=== PATIENT | male | born 1990 | race Caucasian/White ===

== ENCOUNTER → 2018-02-18 | Outpatient (CLI) | payer OTHER ==
--- NOTE | 2018-02-18 18:10 | CONS ---
CONSULTATION REASON FOR CONSULTATION: This is a consultation note for sleep apnea. HISTORY OF PRESENT ILLNESS: This is a 27-year-old boy who comes in for evaluation management of his obstructive sleep apnea. The patient was diagnosed having ORIN approximately 2 years ago through a sleep study that was done at [facility] in [place]. He was given a CPAP machine which was set at a pressure of 7 cm of water. The patient currently was asked to come into the sleep center by his family members and his mother to make sure the treatment has been effective over the past 2 years. I checked this patient's CPAP machine. The patient has a Rezmed S9 series which is set at a pressure of 7 cm of water. The patient is using a Mirage Quattro full face mask. His average CPAP is around 8.1 hours per night and his CPAP use for more than 4 hours is 29/30. The patient reports no snoring while on CPAP therapy. He denies having any choking or gasping for air. He is waking up refreshed and alert during the day. He is going to bed around 12:00 am and waking up at 7:00 am. He has gained some weight in the order of 27 pounds over the past 5 years and 10 pounds over the past 1 year. At times he feels that the pressure is low and he is in need of a higher pressure through his machine. His current [place] score is 11. He is working at [employer] and he is able to function and perform activities of the day life without any major problems or sleepiness or tiredness or fatigue. He has history of seizure disorder which is well treated with Depakote and he also has been on Lexapro for chronic depression. No substance abuse. He has positive family history for obstructive sleep apnea. PAST MEDICAL HISTORY: 1. ORIN, exact diagnostic circumstances are not available. Baseline PSG is not available. The patient is currently on a CPAP pressure of 7 cm of water. 2. Seizure disorder. 3. Chronic anxiety. PAST SURGICAL HISTORY: Includes surgery on the right wrist. DRUG ALLERGIES: Not known. OUTPATIENT MEDICATION LIST: Includes Depakote, Lexapro and zonisamide. SOCIAL HISTORY: The patient is a nonsmoker. No history of alcohol. No history of IV drugs. FAMILY HISTORY: Positive for obstructive sleep apnea in a sister. REVIEW OF SYSTEMS: 12-point review of system was done and positive findings are mentioned above in the history of present illness. The patient is a healthy child. His seizures have been well suppressed. No insomnia. No choking or gasping sensation. No restlessness in the lower extremities. No sleepwalking or sleep talking. No grinding of the teeth. No palpitation. No heartburn at nighttime. He has anxiety and component of depression for which he is on Lexapro. No sleep paralysis. No hallucinations. No cataplexy. PHYSICAL EXAMINATION: BP is 119/69, pulse 88, respirations 16, temperature 98.1, saturation 98% on room air. Weight 236. Height is 5 feet 8 inches and neck size 15.5 inches. General appearance: Calm comfortable in no acute distress. Head is atraumatic, normocephalic. NECK: Supple. Mallampati Class 1. There is no goiter or neck masses. LUNGS: Clear to auscultation. HEART: Sounds regular rate and rhythm. Normal S1, S2. No S3, S4. No murmurs. ABDOMEN: Soft, nontender. No organomegaly. EXTREMITIES: No edema. No cyanosis or clubbing. SKIN: Negative for wounds or ulcerations. IMPRESSION: 1. Obstructive sleep apnea. Currently on a CPAP pressure of 7 cm of water. 2. Hypersomnia, improved current [place] score is down to 11. 3. Obesity with interval weight gain. Current BMI 35.8. 4. Seizure disorder. Currently well treated. 5. Anxiety/depression. PLAN: 1. Encourage weight loss. 2. Put this patient on automatic mode with a minimum pressure of 5 maximum pressure of 15. This change was done as the patient was stating that he would be in need of a higher pressures and the pressure of 7 was probably suboptimal and at times, was feeling air hungry. He also reports some feeling of suffocating at nighttime with a pressure of 7 cm of water and based on that, the changes were made. 3. Stop the Mirage Quattro and will give the patient an AirFit F20 full face mask. 4. Patient will see me back in 6 weeks time to report his clinical response to the above-mentioned changes. Would consider repeating a CPAP titration if he remains to be quite uncomfortable and symptomatic while on treatment. MMODL / IJN: [id number] /
== END | disposition home or self-care (01) ==
LOC: SLEEP 10:21
PROVIDERS: ATTEND Internal Medicine Critical Care Medicine
DX: G47.33 Obstructive sleep apnea (adult) (pediatric) (principal); G40.909 Epilepsy, unspecified, not intractable, without status epilepticus; F41.8 Other specified anxiety disorders; F32.9 Major depressive disorder, single episode, unspecified; E66.9 Obesity, unspecified; Z98.890 Other specified postprocedural states; Z79.899 Other long term (current) drug therapy; Z68.35 Body mass index [BMI] 35.0-35.9, adult; Z99.89 Dependence on other enabling machines and devices
CPT/HCPCS: 99211

== ENCOUNTER → 2018-04-08 | Outpatient (CLI) | payer OTHER ==
--- NOTE | 2018-04-08 18:50 | PN ---
PROGRESS NOTE Kelby is 27, coming in for a compliancy check regarding her obstructive sleep apnea. The patient was seen 3 months ago here at the Sleep Center. The patient was having some difficulty tolerating the CPAP machine because of low pressure sensation. I checked the CPAP machine and I changed the setting to a minimum pressure of 7, maximum pressure of 15 allowing some high pressure at start which helps this patient get rid of the air hunger. His REM time was also terminated. He was switched to an AirFit F20 full face mask which he likes it very much. He is utilizing his CPAP every night. His CPAP use around 100% for more than 4 hours and his P90 pressure is at 7.9. He is benefitting from the treatment. He has no major hypersomnia or sleepiness during the day. No seizure activity has been noted. His body weight remains stable. REVIEW OF SYSTEMS: 12-point review of system was done. Positive findings are mentioned above history of present illness. [place] score is 11. PHYSICAL EXAMINATION: BP is 126/59, pulse 78, respirations 16, temperature 98.0, saturation 98% on room air. Weight is 231. Height is 5 feet 8 inches and BMI 35.1. GENERAL APPEARANCE: Calm, comfortable. Head is atraumatic, normocephalic. NECK: Supple. There is no JVD. No goiter or neck masses. Mallampati class IV. LUNGS: Clear to auscultation. HEART: Sounds regular rhythm. Normal S1, S2. No S3. No murmurs. ABDOMEN: Soft, nontender. No organomegaly. EXTREMITIES: No edema. No cyanosis or clubbing. IMPRESSION: 1. Obstructive sleep apnea. Currently on APAP with minimum pressure of 7 and maximum pressure of 15. Treatment is successful. 2. Hypersomnia, improved. 3. Obesity, BMI of 35. 4. Seizure disorder. 5. Chronic anxiety/depression. PLAN: 1. Continue same CPAP setting. 2. Renew the AirFit F20 full face mask. 3. Encourage weight loss. 4. See me back in a year's time or earlier if needed. MMODL / IJN: [id number] /
== END | disposition home or self-care (01) ==
LOC: SLEEP 13:12
PROVIDERS: ATTEND Internal Medicine Critical Care Medicine
DX: G47.33 Obstructive sleep apnea (adult) (pediatric) (principal); E66.9 Obesity, unspecified; G40.909 Epilepsy, unspecified, not intractable, without status epilepticus; F41.9 Anxiety disorder, unspecified; F32.9 Major depressive disorder, single episode, unspecified; Z68.35 Body mass index [BMI] 35.0-35.9, adult

== ENCOUNTER → 2019-01-13 | Outpatient (CLI) | payer OTHER ==
--- NOTE | 2019-01-13 17:55 | PN ---
PROGRESS NOTE This is a 28-year-old male patient coming in for a CPAP compliancy followup. The patient was diagnosed having obstructive sleep apnea through an outside sleep center. The patient is currently on APAP. I checked his CPAP machine approximately a year ago and the patient is coming in for an annual check. The patient is still using his ResMed S9 series, which is an APAP unit. It is set at a minimum pressure of 7, maximum pressure of 17. He is using also an AirFit F20 medium-sized mask. Since his last visit, the patient has gained around 30 pounds. He used to weight 231 and is currently up to 244. Based on the compliance data, the patient has been averaging around 8 hours of APAP use per night and his AHI is down to 1.7. He is doing well. No snoring while on the treatment. He is waking up refreshed and alert during the day. No major hypersomnia or sleepiness. He is well treated. He is going to see a carbon sequestration plant engineer in regard to his weight gain. Otherwise, no new-onset comorbidities since his last visitation. REVIEW OF SYSTEM: Fourteen-point review of systems was done. Positive findings are all mentioned above in the history of present illness. PHYSICAL EXAMINATION: BP is 147/84, pulse 90, respirations 16, temperature 98.2, saturation 97% on room air. Height is 5 feet 8 inches, weight 244, and BMI 37. GENERAL APPEARANCE: Obese. Calm, comfortable. HEAD: Atraumatic, normocephalic. NECK: Supple. Mallampati class IV. There is no goiter or neck masses. LUNGS: Clear to auscultation. HEART: Heart sounds are regular rate and rhythm. Normal S1, S2. No S3, S4. No murmurs. ABDOMEN: Soft, nontender. No organomegaly. EXTREMITIES: No edema. No cyanosis or clubbing. NEUROLOGIC: Alert and oriented x3. No focal neurological deficits. PSYCHIATRIC: Negative for anxiety or depression. IMPRESSION: 1. Symptomatic obstructive sleep apnea. Currently on APAP. The patient has a ResMed S9 series with an APAP, minimum pressure of 7, maximum pressure of 17. 2. Obesity; body mass index of 37. 3. Hypersomnia, recovered. 4. History of depression. 5. History of seizures. 6. Obesity with interval weight gain. PLAN: 1. Weight loss. 2. Encourage seeing a dietitian regarding weight loss. 3. Continue APAP therapy at the same setting. Treatment is successful. Compliancy data is adequate. Keep the patient on an AirFit F20 medium-sized full-face mask and see me back in the office in a year's time in followup, earlier if needed. MMGLORY / IJN: [id number] /
== END ==
LOC: SLEEP 14:36
PROVIDERS: ATTEND Internal Medicine Critical Care Medicine
DX: G47.33 Obstructive sleep apnea (adult) (pediatric) (principal); E66.9 Obesity, unspecified; Z68.37 Body mass index [BMI] 37.0-37.9, adult; Z99.89 Dependence on other enabling machines and devices; Z86.69 Personal history of other diseases of the nervous system and sense organs; Z86.59 Personal history of other mental and behavioral disorders

== ENCOUNTER 2019-01-16 10:14 | Emergency (ER) | payer OTHER ==
[2019-01-16] MEDS ORDERED: SODIUM CHLORIDE 0.9% 1,000 ML IV STA ×2 (10:43)
[2019-01-16] MEDS ORDERED: ONDANSETRON 4 MG/2 ML VIAL IVP STA (10:43)
[2019-01-16] MEDS ORDERED: LORazepam 2 MG/ML INJ IV STA (10:43)
--- NOTE | 2019-01-16 10:46 | ED ---
Seizure HPI - General Chief Complaint: Seizure Stated Complaint: Seizure Time Seen by Provider: 01/16/19 10:23 Source: patient, family, RN notes reviewed, old records reviewed Mode of arrival: wheelchair Limitations: no limitations - History of Present Illness Initial Comments: Patient is a 28-year-old male history of seizure disorder presents emergency Department after 15 minute grand mal seizure. Patient reports emergency department with his mother. Currently feels nauseous and complains of a headache. He denies any history of injury related to the seizure. The seizure lasted approximately 15 minutes and Patient was in his bed. Patient manages his seizures Depakote. He saw his neurologist approximately 3 weeks ago. He follows with neurology [facility]. Patient has had no recent grand mal seizures. He states he typically does not get a significant headache after seizure-like activity. Patient reports that he has had no vomiting episodes but does feel nauseated. Mother is concerned because he still feels nauseous that he still having a seizure. - Related Data Home Medications Medication Instructions Recorded Confirmed Divalproex ER [Depakote ER] 1,000 mg PO HS 01/16/19 01/16/19 Escitalopram Oxalate [Lexapro] 20 mg PO HS 01/16/19 01/16/19 Allergies Allergy/AdvReac Type Severity Reaction Status Date / Time diphenhydramine AdvReac Unknown Verified 01/16/19 10:29 [From Иван] Childhood Review of Systems ROS Statement: Those systems with pertinent positive or pertinent negative responses have been documented in the HPI. ROS Other: All systems not noted in ROS Statement are negative. Past Medical History Past Medical History: Seizure Disorder History of Any Multi-Drug Resistant Organisms: None Reported Past Surgical History: Orthopedic Surgery Past Psychological History: Anxiety, Depression Smoking Status: Never smoker Past Alcohol Use History: Occasional Past Drug Use History: None Reported General Exam - General Exam Comments Initial Comments: 28-year-old male. Patient somewhat postictal. Limitations: no limitations General appearance: alert, in no apparent distress Head exam: Present: atraumatic, normocephalic, normal inspection Eye exam: Present: normal appearance, PERRL, EOMI. Absent: scleral icterus, conjunctival injection, periorbital swelling ENT exam: Present: normal exam, mucous membranes moist Neck exam: Present: normal inspection. Absent: tenderness, meningismus, lymphadenopathy Respiratory exam: Present: normal lung sounds bilaterally. Absent: respiratory distress, wheezes, rales, rhonchi, stridor Cardiovascular Exam: Present: regular rate, normal rhythm, normal heart sounds. Absent: systolic murmur, diastolic murmur, rubs, gallop, clicks GI/Abdominal exam: Present: soft, normal bowel sounds. Absent: distended, tenderness, guarding, rebound, rigid Extremities exam: Present: normal inspection, full ROM, normal capillary refill. Absent: tenderness, pedal edema, joint swelling, calf tenderness Back exam: Present: normal inspection Neurological exam: Present: alert, oriented X3, CN II-XII intact Expanded Patient oriented to: Present: person, place, time Speech: Present: fluid speech Cranial nerves: EOM's Intact: Normal, Facial Sensation: Normal Cerebellar function: Finger to Nose: Normal Upper motor neuron: Tomasz Neglect: Normal, Pronator Drift: Normal Sensory exam: Upper Extremity Light Touch: Normal, Lower Extremity Light Touch: Normal Motor strength exam: RUE: 5, LUE: 5, RLE: 5, LLE: 5 Eye Response: (4) open spontaneously Motor Response: (6) obeys commands Verbal Response: (5) oriented [place] Total: 15 Psychiatric exam: Present: normal affect, normal mood Skin exam: Present: warm, dry, intact, normal color. Absent: rash Course Vital Signs 01/16/19 01/16/19 10:17 12:47 Temperature 97.7 F Pulse Rate 102 H 76 Respiratory 18 18 Rate Blood Pressure 124/81 129/76 O2 Sat by Pulse 90 L 99 Oximetry Medical Decision Making - Medical Decision Making 28-year-old male. Alert and oriented, presents wrist after seizure. He has a has history of seizure disorder managed with Depakote. At this time Patient has been appearing well. He does complain of a headache. He reports and 15 minutes is related to activity. He is given IV fluids labwork obtained. Laboratory was reviewed and unremarkable. Depakote levels an order to, subtherapeutic. Patient relates that he may miss a dose this week. Patient advised to follow-up with neurology. I discussed that if he feels welling be discharged home. Discussed resuming his Depakote a normal fashion. All questions answered return parameters were discussed. - Lab Data Result diagrams: 01/16/19 10:32 01/16/19 10:32 Lab Results 01/16/19 01/16/19 01/16/19 Range/Units 10:32 10:32 12:45 WBC 9.2 (3.8-10.6) k/uL RBC 5.43 (4.30-5.90) m/uL Hgb 15.0 (13.0-17.5) gm/dL Hct 46.4 (39.0-53.0) % MCV 85.6 (80.0-100.0) fL MCH 27.7 (25.0-35.0) pg MCHC 32.4 (31.0-37.0) g/dL RDW 14.2 (11.5-15.5) % Plt Count 285 (150-450) k/uL Neutrophils % 72 % Lymphocytes % 20 % Monocytes % 5 % Eosinophils % 2 % Basophils % 1 % Neutrophils # 6.7 (1.3-7.7) k/uL Lymphocytes # 1.8 (1.0-4.8) k/uL Monocytes # 0.5 (0-1.0) k/uL Eosinophils # 0.1 (0-0.7) k/uL Basophils # 0.1 (0-0.2) k/uL Sodium 141 (137-145) mmol/L Potassium 4.8 (3.5-5.1) mmol/L Chloride 107 (98-107) mmol/L Carbon Dioxide 21 L (22-30) mmol/L Anion Gap 13 mmol/L BUN 15 (9-20) mg/dL Creatinine 0.61 L (0.66-1.25) mg/dL Est GFR (CKD-EPI)AfAm >90 (>60 ml/min/1.73 sqM) Est GFR (CKD-EPI)NonAf >90 (>60 ml/min/1.73 sqM) Glucose 117 H (74-99) mg/dL Calcium 9.5 (8.4-10.2) mg/dL Total Bilirubin 0.4 (0.2-1.3) mg/dL AST 33 (17-59) U/L ALT 56 (21-72) U/L Alkaline Phosphatase 86 (38-126) U/L Total Protein 7.8 (6.3-8.2) g/dL Albumin 4.6 (3.5-5.0) g/dL Urine Color Light Yellow Urine Appearance Clear (Clear) Urine pH 5.5 (5.0-8.0) Ur Specific [place] 1.012 (1.001-1.035) Urine Protein Trace H (Negative) Urine Glucose (UA) Negative (Negative) Urine Ketones Trace H (Negative) Urine Blood Negative (Negative) Urine Nitrite Negative (Negative) Urine Bilirubin Negative (Negative) Urine Urobilinogen <2.0 (<2.0) mg/dL Ur Leukocyte Esterase Negative (Negative) Urine Opiates Screen Not Detected (NotDetected) Ur Oxycodone Screen Not Detected (NotDetected) Urine Methadone Screen Not Detected (NotDetected) Ur Propoxyphene Screen Not Detected (NotDetected) Ur Barbiturates Screen Not Detected (NotDetected) Valproic Acid 42.7 ug/mL U Tricyclic Antidepress Not Detected (NotDetected) Ur Phencyclidine Scrn Not Detected (NotDetected) Ur Amphetamines Screen Not Detected (NotDetected) U Methamphetamines Scrn Not Detected (NotDetected) U Benzodiazepines Scrn Not Detected (NotDetected) Urine Cocaine Screen Not Detected (NotDetected) U Marijuana (THC) Screen Not Detected (NotDetected) 01/16/19 12:32 EKG shows normal sinus rhythm, normal EKG noted. Ventricular rate of 86 bpm. Verbal is 164 ms. QS duration 92 ms. QT QTc is 362/433 ms. No evidence of ST elevation or T-wave inversions. No evidence of atrial or ventricular arrhythmias. - Radiology Data Radiology results: report reviewed CT of the brain is negative for any acute intracranial hemorrhage, mass effect or midline shift. Disposition Clinical Impression: Seizure Disposition: HOME SELF-CARE Condition: Good Instructions (If sedation given, give patient instructions): Recurrent Seizures in Adults (ED) Additional Instructions: Continue to resume Depakote. Follow-up with your primary care doctor and neurology. Return to the emergency department if any alarming signs or symptoms occur. Is patient prescribed a controlled substance at d/c from ED?: No Referrals: Jadon Bae MD [Primary Care Provider] - 1-2 days Time of Disposition: 13:25
[2019-01-16 11:18] LABS: Basophils # (A) 0.1 k/uL (0-0.2); Basophils % (A) 1 %; Eosinophils # (A) 0.1 k/uL (0-0.7); Eosinophils % (A) 2 %; HCT 46.4 % (39.0-53.0); Lymphocytes # (A) 1.8 k/uL (1.0-4.8); Lymphocytes % (A) 20 %; MCH 27.7 pg (25.0-35.0); MCHC 32.4 g/dL (31.0-37.0); MCV 85.6 fL (80.0-100.0); Mean Platelet Volume 7.2; Monocytes # (A) 0.5 k/uL (0-1.0); Monocytes % (A) 5 %; Neutrophils # (A) 6.7 k/uL (1.3-7.7); Neutrophils % (A) 72 %; Platelet Count 285 k/uL (150-450); RBC 5.43 m/uL (4.30-5.90); RDW 14.2 % (11.5-15.5); WBC 9.2 k/uL (3.8-10.6)
[2019-01-16 11:26] LABS: ALT 56 U/L (21-72); AST 33 U/L (17-59); Albumin 4.6 g/dL (3.5-5.0); Alkaline Phosphatase 86 U/L (38-126); Anion Gap 13 mmol/L; Blood Urea Nitrogen 15 mg/dL (9-20); Calcium 9.5 mg/dL (8.4-10.2); Carbon Dioxide 21 mmol/L (22-30); Chloride 107 mmol/L (98-107); Glucose 117 mg/dL (74-99); Potassium 4.8 mmol/L (3.5-5.1); Sodium 141 mmol/L (137-145); Total Bilirubin 0.4 mg/dL (0.2-1.3); Total Protein 7.8 g/dL (6.3-8.2)
[2019-01-16 11:31] LABS: Valproic Acid (Depakene) 42.7 ug/mL
--- NOTE | 2019-01-16 11:44 | CT ---
EXAMINATION TYPE: CT brain wo con DATE OF EXAM: 01/16/2019 COMPARISON: NONE HISTORY: Seizure CT DLP: 1099.4 mGycm. Automated Exposure Control for Dose Reduction was Utilized. TECHNIQUE: CT scan of the head is performed without contrast. FINDINGS: There is no acute intracranial hemorrhage, mass effect, or midline shift identified. The ventricles and sulci are within normal limits in size. The globes are intact and the visualized sin uses are clear. IMPRESSION: No acute intracranial hemorrhage, mass effect, or midline shift is seen.
[2019-01-16] MEDS ORDERED: KETOROLAC 30 MG/ML 1 ML VIAL IVP STA (11:56)
[2019-01-16 13:11] LABS: Appearance,Urine Clear (Clear); Bilirubin,Urine Negative (Negative); Blood,Urine Negative (Negative); Color,Urine Light Yellow; Glucose,Urine (UA) Negative (Negative); Ketones,Urine Trace (Negative); Leukocyte Esterase,Urine Negative (Negative); Nitrite,Urine Negative (Negative); PH, Urine 5.5 (5.0-8.0); Protein,Urine Trace (Negative); Specific Gravity,Urine 1.012 (1.001-1.035); Urobilinogen,Urine <2.0 mg/dL (<2.0)
[2019-01-16 13:19] LABS: Amphetamine Screen,Urine Not Detected (NotDetected); Barbiturate Screen,Urine Not Detected (NotDetected); Benzodiazepines Screen,Urine Not Detected (NotDetected); Cocaine Screen,Urine Not Detected (NotDetected); Methadone Screen, Urine Not Detected (NotDetected); Opiate Screen,Urine Not Detected (NotDetected); Oxycodone Screen, Urine Not Detected (NotDetected); Phencyclidine Screen,Urine Not Detected (NotDetected); Tricyclic Antidepressant,Urine Not Detected (NotDetected); Urn Cannabinoid Scrn Not Detected (NotDetected)
[2019-01-16 13:39] VITALS: BP 124/96; PULSE 80; RESP 12; TEMP 97
== END 2019-01-16 13:59 | disposition home or self-care (01) ==
LOC: EC 10:14
DX: G40.909 Epilepsy, unspecified, not intractable, without status epilepticus (principal); R51 Headache; R11.0 Nausea; F32.9 Major depressive disorder, single episode, unspecified; F41.9 Anxiety disorder, unspecified; Z79.899 Other long term (current) drug therapy; Z88.8 Allergy status to other drugs, medicaments and biological substances; Z53.29 Procedure and treatment not carried out because of patient's decision for other reasons
CPT/HCPCS: 36415; 93005; 80164; 80053; 85025; 81003; 80306; 70450; 99285; 96374; 96375; 96361 ×3; J2060; J2405

== ENCOUNTER → 2019-06-02 | Outpatient (CLI) | payer OTHER ==
--- NOTE | 2019-06-02 12:46 | P.PN ---
Subjective Progress Note Date: 06/02/19 Principal diagnosis: ORIN 28-year-old male patient coming in for a follow-up regarding his obstructive sleep apnea treatment. The patient was diagnosed having ORIN few years back and the patient has been treated with CPAP therapy. Original diagnosis was done at [facility]. The patient was utilizing a ResMed S9 series and I check his compliance data approximately 6 months ago and the patient looked great. Since then, his machine is giving a segment that the Motor is running out of its expected life and the patient is worried that he is not getting the expected benefit in his holding of can update his CPAP unit. Since his last evaluation, the patient is losing weight. He used to weigh 244 pounds and currently is down to 230. His APAP is set at a minimum pressure of 8 and a maximum pressure of 17. Based on the compliance data, the patient has been utilizing his APAP more than 4 hours 100% of the time with an average use of 8.3 hours per night and an AHI of 3 while on treatment. His average pressure on the machine is at 12.2. He is going to see a dietitian and is losing weight. No headache. No altered mentation. No palpitations. No seizure activity. No other significant events over the past 6 months Review of system A complete review of system was done including 14 point review of system and there is no significant events noted other than things mentioned above in history of present illness. Of significance is his is weight loss Objective - Vital Signs Vital signs: BP is 115/77, pulse is 78, respirations 16, weight is 230, BMI 34.9, temperature 90.2, saturation 97% on room air, height is 5 8 The patient appeared well nourished and normally developed. Vital signs as documented. Head exam is unremarkable. No scleral icterus or corneal arcus noted. Neck is without jugular venous distension, thyromegaly, or carotid bruits. Carotid upstrokes are brisk bilaterally. Lungs are clear to auscultation and percussion. Cardiac exam reveals the PMI to be normally sized and situated. Rhythm is regular. First and second heart sounds normal. No murmurs, rubs or gallops. Abdominal exam reveals normal bowel sounds, no masses, no organomegaly and no aortic enlargement. Extremities are nonedematous and both femoral and pedal pulses are normal.Examination of the skin revealed no evidence of significant rashes, suspicious appearing nevi or other concerning lesions. Neurologically awake and alert and is no focal neurological deficit Assessment and Plan Plan: 1 ORIN, symptomatic and currently utilizing an APAP. The machine has been used for more than 7 years and is getting a signal that the motor will need to be replaced on his cream monitor. For that reason is coming into update his CPAP. 2 hypersomnia, chronic related to above 3 obesity with interval weight loss current BMI is down to 34.9 4 depression 5 seizure activity currently on Depakote Plan Encourage further weight loss. We will order a new CPAP machine for this patient. This will be a ResMed air since unit, preferably an AutoSet which will be adjusted at a minimum pressure of 8 and a maximal pressure of 17 and will keep the same mask interface for now. Encourage further weight loss. See me back in the sleep center and 30-90 days for a compliancy check after he obtained a new CPAP machine. We'll continue to follow make further recommendations accordingly.
== END ==
LOC: SLEEP 10:12
PROVIDERS: ATTEND Internal Medicine Critical Care Medicine
DX: G47.33 Obstructive sleep apnea (adult) (pediatric) (principal); E66.9 Obesity, unspecified; F32.9 Major depressive disorder, single episode, unspecified; R56.9 Unspecified convulsions; Z79.899 Other long term (current) drug therapy

== ENCOUNTER 2019-06-29 10:42 | Emergency (ER) | payer OTHER ==
--- NOTE | 2019-06-29 10:57 | ED ---
General Adult HPI - General Stated complaint: CPR Time Seen by Provider: 06/29/19 10:42 Source: EMS, RN notes reviewed Mode of arrival: EMS Limitations: altered mental status, physical limitation - History of Present Illness Initial comments: Patient is an unresponsive 28-year-old male presenting to the emergency department as a priority one with CPR in progress. Patient reportedly was found unresponsive in the shower. Mother tried calling him at 9:15 however there was no answer. Mother then went to the house. EMS was called at 1002 and arrived within just a couple of minutes. There was a question if pulse was present and possible wide-complex rhythm around 920, that lasted a minute or 2. Patient has received 5 doses of epinephrine in route. Patient is intubated and unresponsive and unable to report any history. Patient reportedly has history of seizures. Patient reportedly had a large amount of emesis in the oropharynx when he has been intubated. - Related Data Home Medications Medication Instructions Recorded Confirmed Divalproex ER [Depakote ER] 1,000 mg PO HS 01/16/19 01/16/19 Escitalopram Oxalate [Lexapro] 20 mg PO HS 01/16/19 01/16/19 Allergies Allergy/AdvReac Type Severity Reaction Status Date / Time diphenhydramine AdvReac Unknown Verified 01/16/19 10:29 [From Иван] Childhood Review of Systems ROS Statement: Those systems with pertinent positive or pertinent negative responses have been documented in the HPI. ROS Other: All systems not noted in ROS Statement are negative. Limitations: ROS unobtainable due to patients medical condition Past Medical History Past Medical History: Seizure Disorder History of Any Multi-Drug Resistant Organisms: None Reported Past Surgical History: Orthopedic Surgery Past Psychological History: Anxiety, Depression Smoking Status: Never smoker Past Alcohol Use History: Occasional Past Drug Use History: None Reported General Exam Limitations: altered mental status, physical limitation General appearance: other (Patient intubated and unresponsive, CPR in progress. Patient appears cyanotic with strong purplish discoloration from the neck up.) Head exam: Present: normocephalic Eye exam: Present: other (Pupils are fixed and dilated) ENT exam: Present: other (Patient intubated. Nose appears somewhat swollen and there is some blood from the left side.) Neck exam: Present: normal inspection Respiratory exam: Present: other (No spontaneous breath sounds. Equal breath sounds with bagging insufflation) Cardiovascular Exam: Present: other (No heart sounds. No pulse) GI/Abdominal exam: Present: soft. Absent: rigid Extremities exam: Present: normal inspection Neurological exam: Present: other (Unresponsive) Expanded Eye Response: (1) no response Motor Response: (1) no motor response Verbal Response: (1) no verbal response Psychiatric exam: Present: other (Unresponsive) Skin exam: Present: cyanosis Course - Reevaluation(s) Reevaluation #1: 06/29/19 10:55 1047 patient continues to have no pulse. There continues to be asystole on the monitor. No heart sounds. No breath sounds. No response to pain. Pupils are fixed and dilated. Time of is 1047 a.m. 06/29/19 11:25 Family was updated. Mother did not feel that autopsy was necessary. Case was discussed with Dr. Bae. Case was discussed with Colleen from medical lab director office would call back regarding disposition of the body. She was informed of mother's thoughts that autopsy was probably not necessary. She was also informed of Dr. Bae's thoughts that autopsy would be preferred. Disposition Clinical Impression: Cardiac arrest Disposition: Is patient prescribed a controlled substance at d/c from ED?: No Referrals: Jadon Bae MD [Primary Care Provider] - 1-2 days Preliminary Cause of : Cardiopulmonary failure
== END 2019-06-29 13:42 | disposition expired ==
LOC: EC 10:42
DX: I46.9 Cardiac arrest, cause unspecified (principal); G40.909 Epilepsy, unspecified, not intractable, without status epilepticus; F41.9 Anxiety disorder, unspecified; F32.9 Major depressive disorder, single episode, unspecified; Z79.899 Other long term (current) drug therapy; Z88.8 Allergy status to other drugs, medicaments and biological substances
CPT/HCPCS: 92950; 99285